=== PATIENT | male | born 1955 | race Caucasian/White ===

== ENCOUNTER 2018-06-10 11:26 | Day surgery (SDC) | payer OTHER ==
[~2018-06-10] VITALS: Ht 165.1 cm; Wt 65.3 kg
[2018-06-10 13:13] VITALS: Ht 165.1 cm; Wt 65.3 kg
[2018-06-10] MEDS ORDERED: PANTAPRAZOLE (13:14)
[2018-06-10 13:25] VITALS: BP 120/81; PULSE 73; RESP 12
--- NOTE | 2018-06-10 13:52 | PREAC ---
Date/Time of Note Date/Time of Note DATE: 06/10/18 TIME: 13:48 Anesthesia Eval and Record Evaluation Time Pre-Procedure Interview DATE: 06/10/18 TIME: 13:48 Age 62 Sex male NPO: 8 hrs Preoperative diagnosis GERD constipation Planned procedure EGD colonoscopy Past Medical History Past Medical History: None Surgery & Anesthesia Issues No known issue Meds Anticoagulation: No Beta Kathryn within 24 hr: No Reason Beta Kathryn not given: Pt. not on B-Kathryn Reported Medications [Pantaprazole] No Conflict Check 06/10/18 Meds reviewed: Yes Allergies Coded Allergies: No Known Allergy (Unverified , 06/10/18) Allergies Reviewed: Yes Labs/Studies Labs Reviewed: Reviewed by anesthesiologist test: N/A Studies: ECG (n/a), CXR (n/a) Pre-procedure Exam Last vitals Vital Signs Date Temp Pulse Resp B/P (MAP) Pulse Ox O2 O2 Flow FiO2 Time Delivery Rate 06/10/18 97.9 73 12 120/81 97 Room Air 13:25 (94) Airway: Adequate mouth opening Mallampati: Mallampati I Teeth: Normal Lung: Normal Heart: Normal ASA Physical Status ASA physical status: 1 Emergency: None Planned Anesthetic General/MAC: MAC Planned Pain Management Parenteral pain med Pre-operative Attestations Prior to commencing anesthesia and surgery, the patient was re-evaluated, there was verification of: *The patient's identity *The results of appropriate recent lab work and preoperative vital signs *The above evaluation not changing prior to induction *Anesthetic plan, risk benefits, alternative and complications discussed with patient/family; questions answered; patient/family understands, accepts and wishes to proceed. ADRIEL LANGSTON MD Jun 10, 2018 13:52
[2018-06-10] MEDS ORDERED: PROPOFOL 20 ML ONE (14:18)
[2018-06-10] MEDS ORDERED: FENTAnyl 50 MCG/ML VIAL ONE (14:18)
[2018-06-10 15:34] VITALS: BP 119/69; RESP 15
--- NOTE | 2018-06-10 17:14 | PAC ---
Date/Time of Note Date/Time of Note DATE: 06/10/18 TIME: 17:13 Post-Anesthesia Notes Post-Anesthesia Note Last documented vital signs Vital Signs Date Temp Pulse Resp B/P (MAP) Pulse Ox O2 O2 Flow FiO2 Time Delivery Rate 06/10/18 98 70 15 119/69 98 Room Air 15:34 (86) 06/10/18 97.9 73 13:25 Activity: WNL Respiratory function: WNL Cardiovascular function: WNL Mental status: Baseline Pain reasonably controlled: Yes Hydration appropriate: Yes Nausea/Vomiting absent: No ADRIEL LANGSTON MD Jun 10, 2018 17:14
== END 2018-06-10 17:14 | disposition home or self-care (01) ==
LOC: GIL 11:26
PROVIDERS: ATTEND Internal Medicine Gastroenterology
DX: D12.2 Benign neoplasm of ascending colon (principal); K31.89 Other diseases of stomach and duodenum
CPT/HCPCS: 43239; 45380; 88305; 88312; J3010; Z7610

== ENCOUNTER → 2018-11-05 | Outpatient (CLI) | payer OTHER ==
[~2018-11-05] MED LIST: PANTAPRAZOLE
== END | disposition home or self-care (01) ==
LOC: NUC 09:02
PROVIDERS: ATTEND Surgery
DX: K21.9 Gastro-esophageal reflux disease without esophagitis (principal)
CPT/HCPCS: 78264; A9541